=== PATIENT | male | born 1975 | race American Indian/Alaskan Native ===

== ENCOUNTER 2017-02-04 17:03 | Emergency (ER) | payer SELFPAY ==
--- NOTE | 2017-02-04 21:09 | Emergency Department Report ---
ED ENT HPI - General Chief complaint: Dental/Oral Stated complaint: ABSCESS IN MOUTH Time Seen by Provider: 02/04/17 20:33 Source: patient Mode of arrival: Ambulatory Limitations: No Limitations - History of Present Illness Initial comments: 41-year-old male with past medical history smoker presents with complaint of 2- 3 days of left-sided toothache and mild facial swelling. Patient speaking in full sentences awake alert and oriented 3 no muffled speech no stridor denies any nausea or vomiting. MD complaint: tooth pain Onset/Timin -: days(s) Location: tooth # (20) Severity: moderate Severity scale (0 -10): 5 Quality: aching Consistency: constant Context- Dental: history of dental caries - Related Data Previous Rx's Medication Instructions Recorded Last Taken Type Acetaminophen/Codeine [Tylenol 1 tab PO Q6H PRN #14 tab 02/04/17 Unknown Rx /Codeine # 3 tab] Amoxicillin 500 mg PO TID #30 capsule 02/04/17 Unknown Rx Chlorhexidine Mouthwash [Peridex] 118 ml MM BID #1 bottle 02/04/17 Unknown Rx Ibuprofen [Motrin] 600 mg PO Q8H PRN #30 tablet 02/04/17 Unknown Rx Allergies Allergy/AdvReac Type Severity Reaction Status Date / Time No Known Allergies Allergy Unverified 02/04/17 21:25 ED Dental HPI - General Chief complaint: Dental/Oral Stated complaint: ABSCESS IN MOUTH Time Seen by Provider: 02/04/17 20:33 Source: patient Mode of arrival: Ambulatory Limitations: No Limitations - Related Data Previous Rx's Medication Instructions Recorded Last Taken Type Acetaminophen/Codeine [Tylenol 1 tab PO Q6H PRN #14 tab 02/04/17 Unknown Rx /Codeine # 3 tab] Amoxicillin 500 mg PO TID #30 capsule 02/04/17 Unknown Rx Chlorhexidine Mouthwash [Peridex] 118 ml MM BID #1 bottle 02/04/17 Unknown Rx Ibuprofen [Motrin] 600 mg PO Q8H PRN #30 tablet 02/04/17 Unknown Rx Allergies Allergy/AdvReac Type Severity Reaction Status Date / Time No Known Allergies Allergy Unverified 02/04/17 21:25 ED Review of Systems ROS: Stated complaint: ABSCESS IN MOUTH Other details as noted in HPI Constitutional: denies: chills, fever Eyes: denies: eye pain, eye discharge, vision change ENT: denies: ear pain, throat pain Respiratory: denies: cough, shortness of breath, wheezing Cardiovascular: denies: chest pain, palpitations Endocrine: no symptoms reported Gastrointestinal: denies: abdominal pain, nausea, diarrhea Genitourinary: denies: urgency, dysuria Musculoskeletal: denies: back pain, joint swelling, arthralgia Skin: denies: rash, lesions Neurological: denies: headache, weakness, paresthesias Psychiatric: denies: anxiety, depression Hematological/Lymphatic: denies: easy bleeding, easy bruising ED Past Medical Hx - Past Medical History Previous Medical History?: No - Surgical History Past Surgical History?: No - Social History Smoking Status: Current Some Day Smoker Substance Use Type: Marijuana - Medications Home Medications: Home Medications Medication Instructions Recorded Confirmed Last Taken Type Acetaminophen/Codeine [Tylenol 1 tab PO Q6H PRN #14 tab 02/04/17 Unknown Rx /Codeine # 3 tab] Amoxicillin 500 mg PO TID #30 capsule 02/04/17 Unknown Rx Chlorhexidine Mouthwash [Peridex] 118 ml MM BID #1 bottle 02/04/17 Unknown Rx Ibuprofen [Motrin] 600 mg PO Q8H PRN #30 tablet 02/04/17 Unknown Rx ED Physical Exam - General Limitations: No Limitations General appearance: alert, in no apparent distress - Head Head exam: Present: atraumatic, normocephalic - Eye Eye exam: Present: normal appearance, PERRL, EOMI - ENT ENT exam: Present: mucous membranes moist - Expanded ENT Exam Expanded Teeth exam: Present: dental caries, dental tenderness # (absces adjacent to tooth 17), other (no induration on floor of mouth or tongue) - Neck Neck exam: Present: normal inspection, full ROM - Respiratory Respiratory exam: Present: normal lung sounds bilaterally. Absent: respiratory distress - Cardiovascular Cardiovascular Exam: Present: regular rate, normal rhythm. Absent: systolic murmur, diastolic murmur, rubs, gallop - GI/Abdominal GI/Abdominal exam: Present: soft, normal bowel sounds - Rectal Rectal exam: Present: deferred - Extremities Exam Extremities exam: Present: normal inspection - Back Exam Back exam: Present: normal inspection - Neurological Exam Neurological exam: Present: alert, oriented X3 - Psychiatric Psychiatric exam: Present: normal affect, normal mood - Skin Skin exam: Present: warm, dry, intact, normal color. Absent: rash ED Course Vital Signs 02/04/17 02/04/17 02/04/17 17:08 21:26 22:26 Temperature 98.9 F Pulse Rate 65 Respiratory 18 20 20 Rate Blood Pressure 147/92 Blood Pressure [Right] O2 Sat by Pulse 100 Oximetry 02/04/17 22:27 Temperature 98.7 F Pulse Rate 66 Respiratory 20 Rate Blood Pressure Blood Pressure 145/88 [Right] O2 Sat by Pulse 99 Oximetry - I & D Left Lower Face Type of Procedure: Simple Site: inner left gumline Blade Size: 11 Progress: gumline infiltrated with lido2% with epi. small stab incision made at site of abscess, small amount of pus drainage, ~2mls ED Medical Decision Making - Medical Decision Making A/P: Dental cavity 1-small incision made at site of abscess, moderate pus drainage. Proximately to 2-3ccs, Motrin, Tylenol 3, amoxicillin 1 week, Peridex mouthwash 2-patient advised to follow up as soon as possible for dental cavity. I advised patient that lack of follow-up and untreated dental cavity can result in infection to come his face and jaw and if left untreated can progress to sepsis and become lethal. Patient understood these instructions and agreed to follow-up on outpatient basis with dentist as soon as possible. 3-advised to return to ED [facility] for any significant bleeding pus drainage from oral cavity inability to tolerate by mouth, dyspnea shortness of breath muffled voice and/or stridor Critical care attestation.: If time is entered above; I have spent that time in minutes in the direct care of this critically ill patient, excluding procedure time. ED Disposition Clinical Impression: Dental abscess Disposition: DISCHARGED TO HOME OR SELFCARE Is pt being admited?: No Does the pt Need Aspirin: No Condition: Stable Instructions: Dental Abscess (ED) Prescriptions: Acetaminophen/Codeine [Tylenol /Codeine # 3 tab] 1 tab PO Q6H PRN #14 tab PRN Reason: Toothache Amoxicillin 500 mg PO TID #30 capsule Chlorhexidine Mouthwash [Peridex] 118 ml MM BID #1 bottle Ibuprofen [Motrin] 600 mg PO Q8H PRN #30 tablet PRN Reason: Pain Referrals: [facility] [Outside] - 3-5 Days [facility] [Outside] - 3-5 Days Time of Disposition: 22:03
[2017-02-04] MEDS ORDERED: XYLOCAINE 2%/EPI 1:100,000 INFILTRATI ONE (21:12)
[2017-02-04] MEDS ORDERED: MOTRIN PO ONE (21:12)
[2017-02-04 22:28] VITALS: BP 145/88
== END 2017-02-04 22:29 | disposition home or self-care (01) ==
LOC: ED 17:03
DX: K04.7 Periapical abscess without sinus (principal); F17.200 Nicotine dependence, unspecified, uncomplicated; F12.10 Cannabis abuse, uncomplicated